=== PATIENT | female | born 1955 | race Caucasian/White ===

== ENCOUNTER 2024-07-10 23:19 | Emergency (ER) | payer MEDICARE, SELFPAY ==
[2024-07-10 23:21] VITALS: BP 187/94
[2024-07-10 23:30] VITALS: BMI 26.2
--- NOTE | 2024-07-10 23:43 | ED.GENMED ---
History of Present Illness
<ANDRE Claudio - Last Filed: 07/11/24 02:45>
General
Chief Complaint: Chest Pain
Source: patient
Time Seen by Provider: 07/10/24 23:24
Nursing documentation reviewed up to this point in time: agreed with
History of Present Illness
History of Present Illness:
Pt is a 69 yo F with a history of asthma, HTN, and GERD who presents to the emergency department with chest pain. She reports that the chest pain began this morning and has been constant throughout the day. She describes the pain as being located in
the middle of her chest and her middle of her back. She denies that the pain radiates. She states that the pain is a 5/10 and describes it as constant. She denies that anything makes the pain better or worse. Pt also reports having shortness of
breath that began this morning. She states that the shortness of breath has also been constant since it began. Pt states that she has tried Gas-X, Aspirin, and her asthma inhaler today without relief. She denies this ever happening before. Pt denies
recent illness, CARBONE, weakness, palpitations, cough.
Past History
<ANDRE Claudio - Last Filed: 07/11/24 02:45>
Past History
ED Past Medical History: GERD, HTN and Hypothyroidism
ED Past Surgical History: None
Social History
Tobacco: Non-smoker
Alcohol: None
Review of Systems
<ANDRE Claudio - Last Filed: 07/11/24 02:45>
Review of Systems
Allergies reviewed?: Yes
Constitutional: Reports no symptoms
EENT: Reports no symptoms
Respiratory: Reports other (shortness of breath)
Cardiac: Reports chest pain
ABD/GI: Reports no symptoms
: Reports no symptoms
Neurological: Reports no symptoms
Phy Exam
<ANDRE Claudio - Last Filed: 07/11/24 02:45>
General Physical Exam
General Presentation: well appearing and no apparent distress
General age: appears stated age
General Skin: warm
General Habitus: normal
General Mental: alert
General Hydration: appears well hydrated
Cardiovascular Exam
Cardiovascular Exam: regular rate/rhythm
Pulmonary Exam
Pulmonary Exam: lungs clear
Scores
<Theodora Reid, [facility] - Last Filed: 07/11/24 02:45>
Heart Score for Chest Pain Patients
STEMI patient?: No
History: Slightly or Non-Suspicious
ECG: Normal
Age: >/= 65 years
Risk Factors: 1 or 2 Risk Factors
Troponin: </= Normal Limit
Heart Score for Chest Pain Patients: 3
Heart Score Risk: 2.5% MACE over next 6 weeks
PE Low Risk Score
Recommendations: Patient is considered low risk
PE Wells Score
Pulmonary Embolism Risk Score: 0
Probability of PE: Pt is low risk
PERC Rule Criteria
PERC Score: 1
PE can be excluded by PERC: No
<Douglas Woodruff, DO - Last Filed: 07/11/24 01:28>
PE Low Risk Score
Hemodynamically unstable?: No
Thrombolysis or embolectomy needed?: No
Active bleeding or high risk for bleeding?: No
>24hrs on supplemental O2 required to maintain SaO2 >90%?: No
PE diagnosed while on anticoagulation?: No
Severe pain needing IV medication required for >24 hours?: No
Medical or social reason for admission >24 hours?: No
Creatinine clearance < 30 mL/min by Cockcroft-Gault?: No
Severe liver impairment?: No
?: No
Documented hx of heparin-induced thrombocytopenia (HIT)?: No
High risk features on CT (or pulmonary angiogram/MRA)(confirm with echo if features seen)?: No
High risk features on echo, if performed?: No
High risk features on laboratory testing?: No
High risk features on lower extremity US, if performed?: No
High risk features on ECG (confirm with echo if features seen)?: No
Recommendations: Patient is considered low risk
PE Wells Score
Symptoms of DVT: No
No alternative diagnosis better explains the illness: No
Tachycardia with pulse > 100: No
Immobilization (>=3 days) or surgery within previous 4 weeks: No
Prior history of DVT or pulmonary embolism: No
Presence of hemoptysis: No
Presence of malignancy: No
Pulmonary Embolism Risk Score: 0
Probability of PE: Pt is low risk
PERC Rule Criteria
Age <50 years: No
HR <100 bpm: Yes
Room air oxygen sat >94%: Yes
History of DVT or PE: No
Recent trauma or surgery: No
Hemoptysis: No
Exogenous estrogen: No
Clinical signs suggestive of DVT: No
: No
Considered low risk for PE: Yes
PERC Score: 1
PE can be excluded by PERC: No
Course
<Theodora Reid [facility] - Last Filed: 07/11/24 02:45>
Orders/Labs/Results
Orders:
Orders
07/10/24 23:23
EKG [Electrocardiogram (*1)] Urgent
Reason for Study: Chest Pain
EKG- Treatment ONCE
07/10/24 23:25
Cardiac Monitoring- Treatment ONCE
IV Insert/Care/Rem.- Treatment PRN
CR Chest - 2 Views Urgent
Comment:
Reason For Exam: respiratory distress
O2 Therapy [RESP] Urgent
Titrate/Wean O2 to maintain O2 sat greater than (%): 93
Special Instructions: TO MAINTAIN CONTINUOUS O2 SATS >/= 93%
Pulse Ox/cont/shift [RESP] Urgent
Quantity: 1
Special Instructions: continuous pulse ox
07/10/24 23:27
Complete Blood Count/With Diff Urgent
Comprehensive Metabolic Panel Urgent
Troponin I Urgent
07/11/24 00:52
Electrocardiogram (*1) Urgent
Reason for Study: Chest Pain
07/11/24 00:57
Troponin I Urgent
Abnormal Lab Results
07/10/24
23:27
MPV 10.9 H fL
(7.4-10.4)
Glucose 113 H mg/dl
(70-99)
07/10/24 23:27
07/10/24 23:27
Vital Signs
Initial and Last Documented VS:
Initial Vital Signs
Temp Pulse Resp BP Pulse Ox
98.1 F 73 16 187/94 99
07/10/24 23:21 07/10/24 23:21 07/10/24 23:21 07/10/24 23:21 07/10/24 23:21
Last Documented Vital Signs
Temp Pulse Resp BP Pulse Ox
98.1 F 61 16 160/77 97
07/10/24 23:21 07/11/24 01:00 07/11/24 01:00 07/11/24 01:00 07/11/24 01:00
<Douglas Woodruff, - Last Filed: 07/11/24 01:28>
Orders/Labs/Results
Orders:
Orders
07/10/24 23:23
EKG [Electrocardiogram (*1)] Urgent
Reason for Study: Chest Pain
EKG- Treatment ONCE
07/10/24 23:25
Cardiac Monitoring- Treatment ONCE
IV Insert/Care/Rem.- Treatment PRN
CR Chest - 2 Views Urgent
Comment:
Reason For Exam: respiratory distress
O2 Therapy [RESP] Urgent
Titrate/Wean O2 to maintain O2 sat greater than (%): 93
Special Instructions: TO MAINTAIN CONTINUOUS O2 SATS >/= 93%
Pulse Ox/cont/shift [RESP] Urgent
Quantity: 1
Special Instructions: continuous pulse ox
07/10/24 23:27
Complete Blood Count/With Diff Urgent
Comprehensive Metabolic Panel Urgent
Troponin I Urgent
07/11/24 00:52
Electrocardiogram (*1) Urgent
Reason for Study: Chest Pain
07/11/24 00:57
Troponin I Urgent
Abnormal Lab Results
07/10/24
23:27
MPV 10.9 H fL
(7.4-10.4)
Glucose 113 H mg/dl
(70-99)
07/10/24 23:27
07/10/24 23:27
Vital Signs
Initial and Last Documented VS:
Initial Vital Signs
Temp Pulse Resp BP Pulse Ox
98.1 F 73 16 187/94 99
07/10/24 23:21 07/10/24 23:21 07/10/24 23:21 07/10/24 23:21 07/10/24 23:21
Last Documented Vital Signs
Temp Pulse Resp BP Pulse Ox
98.1 F 61 16 160/77 97
07/10/24 23:21 07/11/24 01:00 07/11/24 01:00 07/11/24 01:00 07/11/24 01:00
<ANDRE Claudio - Last Filed: 07/11/24 02:45>
MDM/Problems Addressed
Differential Diagnosis Includes:
Angina, [place], pericarditis, GERD
<ANDRE Claudio - Last Filed: 07/11/24 02:45>
*Critical Care Note
Total Time (30-74mins, 75-104mins- exclusive of procedures): Not Applicable
<ANDRE Claudio - Last Filed: 07/11/24 02:45>
Update Note
Update Note:
1:28: patient states that she no longer has shortness of breath. She states that she experiences it sometimes due to her asthma and the cold weather.
ED Attending Note
<ANDRE Claudio - Last Filed: 07/11/24 02:45>
-
Portions of this chart may have been created with voice recognition software.� Occasional wrong word or��sound alike� substitutions may have occurred due to the inherent limitations of voice recognition software.
<Douglas Woodruff DO - Last Filed: 07/11/24 01:28>
ED Attending Note
Patient seen and examined by attending physician: Yes
I performed the substantive portion of visit, reviewed & personally made and approve the management plan that is documented in note by myself or DAE.: Yes
ED Attending Note:
Pleasant 69-year-old female presents to the emergency department with chest pain that began this morning. Patient states that the chest pain has been constant throughout the day. She states that it is substernal and radiates through to her back.
Patient initially stated that the pain was 5 out of 10. She reports that the pain is mostly resolved at this time. Patient also reported some shortness of breath. 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 She does have high blood
pressure and states that her pressure was elevated today. Denies fever, chills, nausea or vomiting. Patient was seen in conjunction with the PA student. I have reviewed and agree with the history and treatment plan presented. On my independent
physical exam, patient is awake, alert, and oriented x3 minimal to no acute distress. Heart is regular rate and rhythm. Lungs are clear to auscultation with no wheezes rales or rhonchi present. Abdomen soft nondistended no hepatosplenomegaly
present. Skin is warm and dry. She moves all 4 extremities. There is no edema
Discharge Plan
Departure
Patient Disposition: Home (Routine Discharge)
Date of Disposition: 07/11/24
Time of Disposition: 01:43
Patient with high blood pressure during this ER visit?: Yes
Condition: Good
Discharge Problem:
Chest pain
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
Prescriptions:
No Action
Advair Diskus
2 inh inhalation DAILY
Rx Instructions:
100/50 mg
levothyroxine 25 mcg Tablet
25 mcg PO DAILY
Claritin
10 mg PO DAILY PRN (Reason: allergies)
Maxalt
10 mg PO BID PRN (Reason: migrains)
Mucinex
600 mg PO Q8H PRN (Reason: congestion)
ProAir HFA
2 inh inhalation Q4 PRN (Reason: SOB)
labetalol
100 mg PO BID
omeprazole
20 mg PO DAILY
Referrals:
[facility] [Provider Group] - As needed
Lobito Mata MD [Family Provider] -
Activity Restrictions/Additional Instructions:
Please follow-up with your special forces engineer sergeant, as discussed. If you cannot get a timely appointment with your special forces engineer sergeant, one of our cardiology group has been listed.. Please return to the emergency department with any worsening or change in pain
It was a pleasure meeting you and taking part in your care. We hope for your continued healing and wellness.
Please read discharge instructions in their entirety. However, they are for general education and may not describe your exact diagnosis at discharge. Information on your ER visit and medical conditions were discussed with you along with appropriate
follow up information...
If indicated, please take your medications as instructed and indicated on discharge paperwork.
Please schedule a follow up appointment as directed. Call to schedule an appointment
Please return to the emergency department with ANY change in, persisting, or worsening of symptoms. If any of your symptoms do not improve, or persist, or become more severe within 6-12 hours, please return to the emergency department for further
care.
Please return to the emergency department if you develop a headache, neck pain/stiffness, fever greater than 100.4F, chest pain, shortness of breath, persistent nausea, vomiting, slurred speech, difficulty walking, numbness/tingling, weakness, signs
of infection or any other symptoms that are worrisome to you.
If you have any questions or concerns please do not hesitate to call the Hospital at or E-mail me directly at [email or web address]
Interventions
Interventions:
*Risk Screen - Suicide Last Done: 07/10/24 23:21
*General Assessment Last Done: 07/10/24 23:29
*Neglect/Abuse Screening Last Done: 07/10/24 23:21
ED- Fall Risk Assessment Last Done: 07/10/24 23:31
*ED COVID-19 Vaccine History Last Done: 07/10/24 23:29
*Nursing Disposition Last Done: 07/11/24 02:27
ED- Cardiac Assessment Last Done: 07/10/24 23:31
ED- Neurological Assessment Last Done: 07/10/24 23:31
ED- Pulmonary Assessment Last Done: 07/10/24 23:31
Discharge Date and Time
Discharge Date/Time: 07/11/24 02:28
Print Language: [place]
[2024-07-10 23:59] LABS: % Basophils 1.1 % (0-2); % Eosinophils 5.9 % (0-6); % Immature Granulocytes 0.2 % (0-0.5); % Lymphocytes 42.3 % (20.5-51.1); % Monocytes 7.2 % (1.7-9.3); % Neutrophils 43.3 % (42.2-75.2); Absolute Basophils 0.1 10^3/uL (0-0.2); Absolute Eosinophils 0.3 10^3/uL (0-0.7); Absolute Lymphocytes 2.2 10^3/uL (1.2-3.4); Absolute Monocytes 0.4 10^3/uL (0.1-0.6); Absolute Neutrophils 2.3 10^3/uL (1.4-6.5); Hematocrit 41.1 % (37.0-47.0); Hemoglobin 14.2 g/dL (12.0-16.0); Mean Corp Hgb Conc. 34.5 g/dL (33.0-37.0); Mean Corpuscular Hgb 29.9 pg (27.0-31.0); Mean Corpuscular Volume 86.5 fL (81.0-99.0); Mean Platelet Volume 10.9 fL (7.4-10.4); Nucleated Red Blood Cells % 0 %; Platelet Count 301 10^3/uL (130-400); Red Blood Cell Count 4.75 10^6/uL (4.20-5.40); Red Cell Dist. Width 11.7 % (11.5-14.5); White Blood Cell Count 5.3 10^3/uL (4.8-10.8)
[2024-07-11] LABS: ALT (SGPT) 27 U/L (0-35); AST (SGOT) 27 U/L (14-36); Alkaline Phosphatase 108 U/L (38-126); Blood Urea Nitrogen 15 mg/dl (7-17); Calcium 9.9 mg/dl (8.4-10.2); Carbon Dioxide 26 mmol/L (22-30); Chloride 101 mmol/L (98-107); Estimated Creatinine Clearance 69 ml/min; Glucose 113 mg/dl (70-99); Potassium 4.2 mmol/L (3.5-5.1); Sodium 139 mmol/L (135-145); Total Bilirubin 0.4 mg/dl (0.2-1.3); Total Protein 7.3 g/dl (6.3-8.2); eGFR > 60.00
[2024-07-11 00:02] VITALS: BP 170/83
[2024-07-11 00:30] LABS: Troponin I < 0.012 ng/ml
[2024-07-11 01:00] VITALS: BP 160/77
--- NOTE | 2024-07-11 01:10 | EDRN ---
Dr. Woodruff in to see patient, call wharton in reach
[2024-07-11 01:35] LABS: Troponin I < 0.012 ng/ml
== END 2024-07-11 02:28 | disposition home or self-care (01) ==
LOC: EMR 23:19
PROVIDERS: EMERGENCY PHYSICIAN Student in an Organized Health Care Education/Training Program; FAMILY PHYSICIAN Family Medicine
DX: R07.89 Other chest pain (principal); M54.6 Pain in thoracic spine; R06.02 Shortness of breath; I10 Essential (primary) hypertension; J45.909 Unspecified asthma, uncomplicated; K21.9 Gastro-esophageal reflux disease without esophagitis; E03.9 Hypothyroidism, unspecified; Z86.16 Personal history of COVID-19; Z98.0 Intestinal bypass and anastomosis status; Z90.49 Acquired absence of other specified parts of digestive tract; Z88.5 Allergy status to narcotic agent; Z88.8 Allergy status to other drugs, medicaments and biological substances; Z88.1 Allergy status to other antibiotic agents; Z91.011 Allergy to milk products
CPT/HCPCS: 99285; 94760; 71046; 80053; 84484; 85025; 93005